=== PATIENT | male | born 1970 | race Caucasian/White ===

== ENCOUNTER 2025-05-20 16:57 | Emergency (ER) | payer BC, SELFPAY ==
[2025-05-20 17:01] VITALS: BP 127/77
--- NOTE | 2025-05-21 00:49 | ED.MUSCINJ ---
HPI-Injury
General
Chief Complaint: Musculo-Skeletal Complaint
Source: patient
Exam Limitations: none
Time Seen by Provider: 05/20/25 17:44
Nursing documentation reviewed up to this point in time: agreed with
History of Present Illness-Injury
Initial Injury comments:
55-year-old male who works for the [employer] states he tripped over a bundle of magazines in the parking lot of the post office on 04/23 injuring his left foot. He claims this is not Worker's Comp. He did not feel the injury was significant
until he got home took off his shoe and noted bruising along the instep of the left foot. 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 He states the instep of his left foot continues to feel
swollen and sore.
Past History
Past History
ED Past Medical History: None
ED Past Surgical History: None
Social History
Tobacco: Non-smoker
Alcohol: Occasional
Personal:
Living: with family
Employment: Employed
Review of Systems
Review of Systems
Allergies reviewed?: Yes
All Other Systems: ROS reviewed and negative except as documented in HPI and ROS
Musculoskeletal: Reports other (Pain instep of left foot)
Phy Exam
Physical Exam
Physical Exam:
PHYSICAL EXAMINATION:
General: no apparent distress, not acutely ill
Neuro: alert and oriented.
Psychiatric: well kept. interactive and cooperative
Musculoskeletal: Mild tenderness along the instep of the left foot, no swelling or discoloration noted. Distal neurovascular intact. Pain aggravated when he attempts to flex his toes.
Skin: Warm, pink.
Injury Course
Orders/Labs/Results
Orders:
Orders
05/20/25 17:05
Foot, Left 3 View [CR Foot - Left Min 3 Views] Urgent
Comment:
Reason For Exam: pain injury
MDM/Problems Addressed
Differential Diagnosis Includes:
Soft tissue injury versus fracture
MDM/Problems Addressed:
55-year-old male who works for the [employer] states he tripped over a bundle of magazines in the parking lot of the post office on 04/23 injuring his left foot. He claims this is not Worker's Comp. He did not feel the injury was significant
until he got home took off his shoe and noted bruising along the instep of the left foot. 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 He states the instep of his left foot continues to feel
swollen and sore.
X-ray of left foot initially read by this examiner, no fracture or other abnormality noted
He states he has been able to work and wants to continue to work and does not need a note for work.
Patient put his shoe back on, and ambulated out with normal gait at discharge
*Pulse Oximetry
SaO2: 98
Oxygen Mode of Delivery: Room air
Patient hypoxic: not evaluated
*Critical Care Note
Total Time (30-74mins, 75-104mins- exclusive of procedures): Not Applicable
ED Attending Note
-
Portions of this chart may have been created with voice recognition software.� Occasional wrong word or��sound alike� substitutions may have occurred due to the inherent limitations of voice recognition software.
Discharge Plan
Departure
Patient Disposition: Home (Routine Discharge)
Date of Disposition: 05/20/25
Time of Disposition: 18:16
Patient with high blood pressure during this ER visit?: No
Condition: Good
Discharge Problem:
Soft tissue injury of left foot
Instructions: Using Cold for Pain, Foot sprain - ED discharge instructions
Referrals:
Jf Reyes MD [Active, Orthopedics] - As needed
Activity Restrictions/Additional Instructions:
As we discussed, after a days work up on your feet, rest and elevate the foot and apply cold compresses 20 minutes off and on.
Wear supportive shoes.
See the orthopedic doctor if you are not a lot better in 1 week or not 100% better in 3 weeks
Ibuprofen 600 mg (with food) up to 3 times a day for the next 5 days to see if it helps.
Interventions
Interventions:
*Risk Screen - Suicide Last Done: 05/20/25 17:01
*General Assessment Last Done: 05/20/25 17:49
*Neglect/Abuse Screening Last Done: 05/20/25 17:01
*ED- Fall Risk Assessment Last Done: 05/20/25 17:49
*Nursing Disposition Last Done: 05/20/25 18:27
ED-Musculoskeletal Assessment Last Done: 05/20/25 17:48
Discharge Date and Time
Discharge Date/Time: 05/20/25 18:27
Print Language: NORWEGI[place]
== END 2025-05-20 18:27 | disposition home or self-care (01) ==
LOC: EMR 16:57
PROVIDERS: EMERGENCY PHYSICIAN Emergency Medicine
DX: S99.822A Other specified injuries of left foot, initial encounter (principal); W22.8XXA Striking against or struck by other objects, initial encounter; Y92.481 Parking lot as the place of occurrence of the external cause
CPT/HCPCS: 99283; 73630